=== PATIENT | male | born 1955 | race Caucasian/White ===

== ENCOUNTER 2017-12-28 05:55 | Day surgery (SDC) | payer OTHER ==
[2017-12-28] MEDS ORDERED: fentaNYL 100 MCG/2 ML SDV IV ONE ×4 (05:56→07:05)
[2017-12-28] MEDS ORDERED: Midazolam 1 MG/ML 2 ML SDV IV ONE ×7 (05:56→07:02)
[2017-12-28] MEDS ORDERED: Sodium Chloride 0.9% 10 ML Syringe FLUSH PRN (06:00)
[2017-12-28] MEDS ORDERED: Dextrose 5%-0.45% NaCl 1,000 ML IV SCH (06:00)
[2017-12-28] MEDS ORDERED: Midazolam 1 MG/ML 2 ML SDV ONE (06:16)
[2017-12-28] MEDS ORDERED: fentaNYL 100 MCG/2 ML SDV ONE (06:17)
--- NOTE | 2017-12-28 08:22 | OR ---
DATE: 12/28/2017 PROCEDURES PERFORMED: Total colonoscopy, NBI, and multiple cold snare polypectomies. INSTRUMENT USED: CF-H180AL Olympus videocolonoscope, Olympus distal detachment device. PREMEDICATIONS: Fentanyl 150 mcg intravenous and Versed 4 mg intravenous. Nasal O2 cannula. The procedure was done under pulse oximetry, BP recording, and cardiac monitor technician. INDICATION: Screening colonoscopic examination is done for detection of any polypoid lesions and removal, endoscopic hemostasis therapy if needed. DESCRIPTION OF PROCEDURE: Initial rectal exam was unremarkable. Rigid anoscopy was normal. The colonoscope was passed with ease. Diminutive benign-appearing rectal polyp was noted, photographs were taken, cold snare polypectomy was done, the tissue was retrieved and sent for histopathology. Scattered diverticula were noted in the distal left colon along with deformity. The scope was passed with ease up to the ileocecal area, photographs were taken of the cecum showing 1.5 cm superficial sessile polyp, NBI views were obtained, photographs were taken, piecemeal polypectomy was done, the tissues were retrieved and sent for histopathology. Probing the proximal sides of folds and flexures using adequate distention and clearing up the stool material, withdrawal of the scope was made. Diminutive ascending colon polyp was noted, cold snare polypectomy was done, the tissue was retrieved and sent for histopathology. In the distal transverse colon, another 5 mm sized polyp was noted, cold snare polypectomy was done, the tissue was retrieved and sent for histopathology. In the mid descending colon, diminutive polyp was noted, cold snare polypectomy was done, the tissue was retrieved and sent for histopathology. In the proximal sigmoid colon, another diminutive polyp was noted, cold snare polypectomy was done, the tissue was retrieved and sent for histopathology. No bleeding was noted from any of the visualized areas at the completion of examination. IMPRESSION: 1. Colonic diverticulosis. 2. Multiple colonic polyps. The patient tolerated the procedure well. [facility] /[id number]
--- NOTE | 2017-12-28 10:10 | LETTER ---
12/28/2017 SUKI [place] [address] RE: ADRIANNE GARCIA : 1955 Dear Ms. Perkins: Mr. Adrianne Garcia had colonoscopic examination done this morning and he tolerated the procedure well. I herewith send a copy of the endoscopy note and photographs for your review. Thank you. Sincerely, [facility] /[id number]
== END 2017-12-28 08:40 | disposition home or self-care (01) ==
LOC: DL.ENDO 05:55
PROVIDERS: ATTEND Internal Medicine Gastroenterology
DX: Z12.11 Encounter for screening for malignant neoplasm of colon (principal); D12.0 Benign neoplasm of cecum; D12.2 Benign neoplasm of ascending colon; D12.3 Benign neoplasm of transverse colon; D12.4 Benign neoplasm of descending colon; D12.5 Benign neoplasm of sigmoid colon; K62.1 Rectal polyp; K57.30 Diverticulosis of large intestine without perforation or abscess without bleeding; F17.210 Nicotine dependence, cigarettes, uncomplicated; E66.09 Other obesity due to excess calories; K21.9 Gastro-esophageal reflux disease without esophagitis; Z88.5 Allergy status to narcotic agent; Z88.0 Allergy status to penicillin
CPT/HCPCS: 45380; 45385; J2250; J3010; J7042